=== PATIENT | female | born 1980 | race African-American/Black ===

== ENCOUNTER → 2016-08-22 | Day surgery (SDC) | payer BC ==
[~2016-08-22] MED LIST: BACTRIM DS TABL1 TA2 PO; HAIR, SKIN & N1 EAC1 PO; VITAMIN D50000 UNIT PO
--- NOTE | ~2016-08-22 | OR ---
Unit #: [id number] #: [id number] Patient: SHAKIRA RODRIGUEZ [id number] [facility] [address] [place], [place] [address] [id number] O MR#: [id number] NAME: SHAKIRA RODRIGUEZ ROOM: Date of Procedure: 08/22/2016 Admission Date: 08/22/2016 Surgeon: Vito Robles III, M.D. : 1980 Attending Physician: Vito Robles III, M.D. Primary Care Physician: Aby Doty M.D. OPERATIVE REPORT PREOPERATIVE DIAGNOSIS Chronic morbid obesity. POSTOPERATIVE DIAGNOSIS Chronic morbid obesity. SECONDARY DIAGNOSIS Anterior paraesophageal hernia. PROCEDURE PERFORMED Laparoscopic adjustable gastric banding (AP standard with low-profile port) and laparoscopic paraesophageal hernia repair. TAX COMPLIANCE MANAGER Benjamin De Luna M.D. SPECIMENS None. COMPLICATIONS None apparent. ESTIMATED BLOOD LOSS Minimal. ANESTHESIA General endotracheal tube anesthesia. INDICATIONS FOR PROCEDURE This is a 36-year-old lady who has chronic morbid obesity with a BMI of 40 and no major comorbidities. She has been through the bariatric program at [facility] and understands the risks and benefits of the procedure. DESCRIPTION OF PROCEDURE After consent was obtained, including the risks and benefits of slippage, erosion, port dysfunction, and possible failure of weight loss due to noncompliance, the patient was taken to the operating room and placed in the supine position. General anesthetic was administered and the abdomen was prepped and draped in standard surgical fashion. I began by making a 2 cm incision just above and to the left of the Unit #: [id number] #: [id number] Patient: SHAKIRA RODRIGUEZ umbilicus. I used a Visiport to enter the peritoneal cavity without any difficulty. C02 pneumoperitoneum was then established. Next, I placed a 5 mm port in the right upper quadrant, a 5 mm Mere liver retractor in the subxiphoid region to provide exposure of the gastroesophageal junction. Next, a 10 mm port was placed in the left upper quadrant and a 5 mm port was placed in the left lateral subcostal region. I began by performing an examination of the GE junction to evaluate for a hiatal hernia. We then scored the peritoneal attachments overlying the angle of His. I then opened up the clear space in the gastrohepatic ligament, and then using 2 blunt graspers, I identified the small fat pad crossing over the right crura. I swept the fat anterior to the crura off the crura and using the pars flaccida, I created a retrogastric tunnel where the blunt grasper exited at the angle of His. Once I had made this tunnel safely, I then inserted an Allergan AP band into the abdominal cavity. This adjustable gastric band was then place around the upper part of the stomach and fastened and buckled anteriorly. We then tacked the lateral fundus over the band to the proximal pouch with 2 interrupted 0 Ethibond sutures. I then used a third stitch to imbricate the excess anterior stomach by going from the lesser curvature up towards where the last stitch was placed. We then had excellent hemostasis. I removed the Mere liver retractor. We then removed the port tubing through the initial port incision. The rest of the ports were removed, and the pneumoperitoneum was released. I then left a small tail on the tubing. We then attached the port to the excess band tubing. We placed a piece of Prolene mesh along the back side of the port and used a Prolene stitch to anchor this mesh in place. We then trimmed the excess mesh so that just a small footprint of mesh was in place behind the port. I then inserted the tubing back into the abdominal cavity, and we placed the port into a small pocket that was made just inferior to where our initial port incision was made. The mesh was in direct contact with the fascia, and this will scar in place to hold the port in place. We then injected all the port sites with 0.25% plain Marcaine, and I reapproximated the skin edges with interrupted 4-0 Vicryl subcuticular sutures. Steri-strips were then applied. The patient tolerated the procedure without any problems and returned to the recovery room in stable condition. After exposure of the GE junction, the patient was noted to have a small to medium size anterior paraesophageal hernia. I scored the phrenoesophageal ligament and reduced the hernia defect and after identifying both the right and left crura, I reapproximated the defect with an interrupted 0 Ethibond [id number] suture. I then proceeded with the case as listed above. Dictated by... Vito Robles III, M.D. VCL/shyla TD: 08/24/2016 04:09 JOB #: [id number] Unit #: [id number] #: [id number] Patient: SHAKIRA RODRIGUEZ OPERATIVE REPORT X Vito Robles III, MD PROCEDURE OPERATIVE NOTE
--- NOTE | ~2016-08-22 | CR7 ---
[facility] A Service of [facility] RADIOLOGY TEXT RESULTS PATIENT: SHAKIRA RODRIGUEZ LOCATION: [facility] : [birth year] UNIT #: [id number] AGE: [address]: Vito Robles III, MD SEX: F ORDER DR: [id number] [facility] [address] [place], [place] [address] [id number] O MR#: [id number] Acc #: [id number] NAME: SHAKIRA RODRIGUEZ : 1980 SEX: F STUDY DATE/TIME: 08/22/2016 12:13 UNIT: [facility] ROOM: STUDY DESCRIPTION: CR Abdomen Single AP View Attending Physician: Vito Robles III, M.D. Ordering Physician: Vito Robles III, M.D. Primary Care Physician: Aby Doty M.D. MEDICAL IMAGING REPORT This report is preliminary unless electronic signature is present EXAM Single-view abdomen HISTORY Postop lap-band surgery for morbid obesity. FINDINGS Single view of the abdomen demonstrates a lap-band device at its expected position at the GE junction. Insufflation tubing noted with the insufflation port over the lower mid abdomen. Lung bases are unremarkable. Normal bowel gas pattern. Dictated by... Zaheer Sue M.D. THIS IS AN ELECTRONICALLY VERIFIED REPORT Zaheer Sue M.D. at 08/22/2016 4:54 PM Lenin TD: 08/22/2016 15:09 JOB #: [id number] MEDICAL IMAGING REPORT COPY
[2016-08-22 08:45] LABS: URINE SOURCE CLEAN CATCH
[2016-08-22 08:49] LABS: URINE APPEARANCE CLEAR; URINE BILIRUBIN NEG (NEG); URINE BLOOD 2+ (NEG); URINE COLOR DK YELLOW; URINE GLUCOSE NEG (NEG); URINE KETONE 2+ (NEG); URINE LEUKOCYTE ESTERASE 1+ (NEG); URINE NITRATE NEG (NEG); URINE PROTEIN NEG (NEG); URINE SPECIFIC GRAVITY 1.024 (1.003-1.035)
[2016-08-22 08:52] LABS: CULTURE INDICATED? YES; URINE BACTERIA AUWI 2+ (NEGATIVE); URINE SQUAMOUS EPITHELIAL CELL FEW /[HPF]
== END | disposition home or self-care (01) ==
LOC: CSUR 08:15
PROVIDERS: Surgery
DX: E66.01 Morbid (severe) obesity due to excess calories (principal); K44.9 Diaphragmatic hernia without obstruction or gangrene; E89.0 Postprocedural hypothyroidism; Z68.41 Body mass index [BMI] 40.0-44.9, adult; Z98.51 Tubal ligation status; Z82.49 Family history of ischemic heart disease and other diseases of the circulatory system; Z83.42 Family history of familial hypercholesterolemia; Z83.3 Family history of diabetes mellitus; Z79.899 Other long term (current) drug therapy
CPT/HCPCS: 74000; 81003; 84703; 87086; C1781; J0330; J0690; J1100; J1650; J1885; J2250; J2405; J2710; J3010